=== PATIENT | male | born 1980 | race African-American/Black ===

== ENCOUNTER 2019-05-29 14:24 | Emergency (ER) | payer OTHER ==
[~2019-05-29] VITALS: Ht 177.8 cm; Wt 133.8 kg
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
[2019-05-29 15:44] VITALS: BP 131/83
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
--- NOTE | 2019-05-29 16:00 | NUR ---
ED Nurse Note:pt. said that can't wate for results of x-ray or his d/c instructions and left ER with steady gait and all personal belongings
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
[2019-05-29 16:07] VITALS: BP 131/83
== END 2019-05-29 16:24 | disposition left against medical advice (07) ==
LOC: EMR 15:02
DX: M54.42 Lumbago with sciatica, left side (principal); I10 Essential (primary) hypertension; E11.9 Type 2 diabetes mellitus without complications
CPT/HCPCS: 72020; 99283